=== PATIENT | male | born 1990 | race Caucasian/White ===

== ENCOUNTER 2017-04-14 09:28 | Emergency (ER) | payer OTHER ==
[2017-04-14 10:07] LABS: Basophils % (Auto) 0.4 % (0.0-1.8); Eosinophils % (Auto) 1.5 % (0.0-4.3); Hematocrit 45.1 % (35.5-45.6); Hemoglobin 15.2 gm/dl (11.8-15.2); Mean Corpuscular HGB Conc 34 % (32-34); Mean Corpuscular Hemoglobin 31 pg (28-32); Mean Corpuscular Volume 91 fl (84-94); Platelet Count 192 K/mm3 (140-440); Red Blood Count 4.96 M/mm3 (3.65-5.03); Red Cell Distribution Width 14.1 % (13.2-15.2); White Blood Count 9.1 K/mm3 (4.5-11.0)
[2017-04-14 10:31] LABS: Alanine Aminotransferase 14 units/L (7-56); Albumin 4.5 g/dL (3.9-5); Albumin/Globulin Ratio 1.8 %; Alkaline Phosphatase 54 units/L (35-129); Anion Gap 16 mmol/L; BUN/Creatinine Ratio 13.75; Blood Urea Nitrogen 11 mg/dL (9-20); Calcium 9.2 mg/dL (8.4-10.2); Carbon Dioxide 25 mmol/L (22-30); Chloride 102.8 mmol/L (98-107); Glucose 106 mg/dL (75-100); Lipase 20 units/L (13-60); Potassium 4.7 mmol/L (3.6-5.0); Sodium 139 mmol/L (137-145)
[2017-04-14 10:48] LABS: Bilirubin,Urine NEG (Negative); Blood,Urine NEG (Negative); Ketones,Urine NEG (Negative); Leukocyte Esterase,Urine NEG (Negative); Mucus,Urine 1+ /HPF; Nitrite,Urine NEG (Negative); Protein,Urine <15 mg/dL mg/dL (Negative); Urobilinogen,Urine < 2.0 mg/dL (<2.0); WBC,Urine < 1.0 /HPF (0.0-6.0)
--- NOTE | 2017-04-14 14:51 | Emergency Department Report ---
ED General Adult HPI - General Chief complaint: Abdominal Pain Stated complaint: SORE THROAT/ABD PAIN Time Seen by Provider: 04/14/17 14:20 Source: patient Mode of arrival: Ambulatory Limitations: No Limitations - History of Present Illness Initial comments: Patient complains of an intermittent mid abdominal pain. He has problems with constipation and diarrhea. He states he threw up 2 days ago. Occasionally sees a streak of blood in his stool. He is not complaining of abdominal pain now. He does not complain of a sore throat although that is mentioned on one of his intake she eats. He states the reason that he came to the emergency department is because his "dog is sick". He states he didn't think it was anything contagious but he thought he would like to be checked out. He is requesting a work excuse. He does not have a family physician. He admits occasional beer ingestion but no other gastric irritants. -: week(s) Location: abdomen Radiation: non-radiation Quality: aching Consistency: intermittent, now resolved Improves with: none Worsens with: none Associated Symptoms: denies other symptoms Treatments Prior to Arrival: none - Related Data Previous Rx's Medication Instructions Recorded Last Taken Type Hyoscyamine Subl [Levsin Sl 0.125 0.125 mg SL Q4HR PRN #7 tablet 04/14/17 Unknown Rx TAB] Lansoprazole [Prevacid] 15 mg PO BID #30 cap 04/14/17 Unknown Rx Allergies Allergy/AdvReac Type Severity Reaction Status Date / Time Penicillins Allergy Unknown Verified 04/14/17 09:34 ED Review of Systems ROS: Stated complaint: SORE THROAT/ABD PAIN Other details as noted in HPI Constitutional: denies: chills, fever Eyes: denies: eye pain, eye discharge, vision change ENT: denies: ear pain, throat pain Respiratory: denies: cough, shortness of breath, wheezing Cardiovascular: denies: chest pain, palpitations Endocrine: no symptoms reported Gastrointestinal: as per HPI, abdominal pain, nausea, vomiting. denies: diarrhea Genitourinary: denies: urgency, dysuria Musculoskeletal: denies: back pain, joint swelling, arthralgia Skin: denies: rash, lesions Neurological: denies: headache, weakness, paresthesias Psychiatric: denies: anxiety, depression Hematological/Lymphatic: denies: easy bleeding, easy bruising ED Past Medical Hx - Past Medical History Previous Medical History?: No - Surgical History Hx Appendectomy: Yes - Social History Smoking Status: Never Smoker Substance Use Type: None - Medications Home Medications: Home Medications Medication Instructions Recorded Confirmed Last Taken Type Hyoscyamine Subl [Levsin Sl 0.125 0.125 mg SL Q4HR PRN #7 tablet 04/14/17 Unknown Rx TAB] Lansoprazole [Prevacid] 15 mg PO BID #30 cap 04/14/17 Unknown Rx ED Physical Exam - General Limitations: No Limitations General appearance: alert, in no apparent distress - Head Head exam: Present: atraumatic, normocephalic - Eye Eye exam: Present: normal appearance. Absent: scleral icterus - ENT ENT exam: Present: normal exam, mucous membranes moist - Neck Neck exam: Present: normal inspection. Absent: tenderness, meningismus - Respiratory Respiratory exam: Present: normal lung sounds bilaterally. Absent: respiratory distress - Cardiovascular Cardiovascular Exam: Present: regular rate, normal rhythm. Absent: systolic murmur, diastolic murmur, rubs, gallop - GI/Abdominal GI/Abdominal exam: Present: soft, normal bowel sounds. Absent: distended, tenderness, guarding, rebound, rigid - Rectal Rectal exam: Present: deferred - Extremities Exam Extremities exam: Present: normal inspection - Back Exam Back exam: Present: normal inspection - Neurological Exam Neurological exam: Present: alert, oriented X3, CN II-XII intact. Absent: motor sensory deficit - Psychiatric Psychiatric exam: Present: normal affect, normal mood - Skin Skin exam: Present: warm, dry, intact, normal color. Absent: rash ED Course Vital Signs 04/14/17 04/14/17 09:34 13:37 Temperature 98.2 F 98.2 F Pulse Rate 79 71 Respiratory 18 16 Rate Blood Pressure 131/67 Blood Pressure 130/72 [Right] O2 Sat by Pulse 98 100 Oximetry - Reevaluation(s) Reevaluation #1: Patient's symptoms seem somewhat reminiscent of irritable bowel disease. He is appropriate for outpatient referral. 04/14/17 14:49 ED Medical Decision Making - Lab Data Result diagrams: 04/14/17 09:51 04/14/17 09:51 Laboratory Results - last 24 hr 04/14/17 04/14/17 04/14/17 09:51 09:51 10:14 WBC 9.1 RBC 4.96 Hgb 15.2 Hct 45.1 MCV 91 MCH 31 MCHC 34 RDW 14.1 Plt Count 192 Lymph % (Auto) 24.8 [place] % (Auto) 6.7 Eos % (Auto) 1.5 Baso % (Auto) 0.4 Lymph # 2.3 [place] # 0.6 Eos # 0.1 Baso # 0.0 Seg Neutrophils % 66.6 Seg Neutrophils # 6.1 Sodium 139 Potassium 4.7 Chloride 102.8 Carbon Dioxide 25 Anion Gap 16 BUN 11 Creatinine 0.8 Estimated GFR > 60 BUN/Creatinine Ratio 13.75 Glucose 106 H Calcium 9.2 Total Bilirubin 0.50 AST 14 ALT 14 Alkaline Phosphatase 54 Total Protein 7.0 Albumin 4.5 Albumin/Globulin Ratio 1.8 Lipase 20 Urine Color Yellow Urine Turbidity Clear Urine pH 5.0 Ur Specific [place] 1.019 Urine Protein <15 mg/dl Urine Glucose (UA) Neg Urine Ketones Neg Urine Blood Neg Urine Nitrite Neg Urine Bilirubin Neg Urine Urobilinogen < 2.0 Ur Leukocyte Esterase Neg Urine WBC (Auto) < 1.0 Urine RBC (Auto) 3.0 Urine Mucus 1+ Critical care attestation.: If time is entered above; I have spent that time in minutes in the direct care of this critically ill patient, excluding procedure time. ED Disposition Clinical Impression: Abdominal pain Qualifiers: Abdominal location: periumbilical Qualified Code(s): R10.33 - Periumbilical pain Disposition: DISCHARGED TO HOME OR SELFCARE Is pt being admited?: No Does the pt Need Aspirin: No Condition: Stable Instructions: Abdominal Pain (ED), Irritable Bowel Syndrome (ED) Additional Instructions: Follow-up with primary care physician and a GI doctor is recommended. Return to the emergency department any acute change or problem. Medicines as needed. Prescriptions: Hyoscyamine Subl [Levsin Sl 0.125 TAB] 0.125 mg SL Q4HR PRN #7 tablet PRN Reason: Spasms Lansoprazole [Prevacid] 15 mg PO BID #30 cap Referrals: PRIMARY CARE, [Primary Care Provider] - 3-5 Days Forms: Work/School Release Form(ED) Time of Disposition: 14:51
[2017-04-14 15:06] VITALS: BP 116/56
== END 2017-04-14 15:03 | disposition home or self-care (01) ==
LOC: ED 09:28
DX: R10.33 Periumbilical pain (principal)
CPT/HCPCS: 36415; 80053; 81001; 83690; 85025; 99283

== ENCOUNTER 2017-06-11 07:38 | Day surgery (SDC) | payer OTHER ==
[2017-06-11] MEDS ORDERED: NACL 0.9% 1000 ML 1,000 ML IV SCH (08:00)
[2017-06-11] MEDS ORDERED: DIPRIVAN 10 MG/ML IV ONE (08:12)
--- NOTE | 2017-06-11 08:15 | Anesthesia Consultation ---
Anesthesia Consult and Med Hx Date of service: 06/11/17 - Airway Anesthetic Teeth Evaluation: Good Mental/Hyoid Distance: Adequate Mallampati Class: Class I Intubation Access Assessment: Good - Pulmonary Exam CTA: Yes - Cardiac Exam Cardiac Exam: RRR - Pre-Operative Health Status ASA Pre-Surgery Classification: ASA2 Proposed Anesthetic Plan: MAC - Pulmonary Hx Smoking: Yes - Additional Comments Anesthesia Medical History Comments: fernando knee pain
--- NOTE | 2017-06-11 08:15 | Anesthesia Day of Surgery ---
Anesthesia Day of Surgery - Day of Surgery Patient Examined: Yes Patient H&P Reviewed: Yes Patient is NPO: Yes
--- NOTE | 2017-06-11 09:20 | Short Stay Summary ---
Short Stay Documentation - Allergies and Medications Current Medications: Allergies Penicillins Allergy (Verified 06/08/17 13:36) Hives Home Medications Medication Instructions Recorded Confirmed Last Taken Type No Known Home Medications [No 06/08/17 06/08/17 Unknown History Reported Home Medications] Active Medications Sodium Chloride (Nacl 0.9% 1000 Ml) 1,000 mls @ 50 mls/hr IV DIRECT [place] Last Admin: 06/11/17 08:21 Dose: 50 mls/hr - Brief post op/procedure progress note Date of procedure: 06/11/17 Pre-op diagnosis: 1. RUQ abdominal pain 2. Diarrhea 3. GI bleeding Post-op diagnosis: same Procedure: EGD with biopsy Anesthesia: MAC Findings: as above Surgeon: AUGUSTINE ARCEO Estimated blood loss: none Pathology: list (1. Antrum) Specimen disposition: to lab Condition: stable - Disposition Condition at discharge: Stable Disposition: DC-01 TO HOME OR SELFCARE Short Stay Discharge Plan Activity: no restrictions Weight Bearing Status: Full Weight Bearing Diet: regular Follow up with: MARCELLA MARS MD [Primary Care Provider] - 7 Days
--- NOTE | 2017-06-11 09:22 | Post Anesthesia Evaluation ---
- Post Anesthesia Evaluation Patient Participated: Yes Airway Patent: Yes Stable Respiratory Function: Yes Temp > 96.8F: Yes Pain Manageable: Yes Adequeate Hydration: Yes Anesthesia Complications: No Block Receding Appropriately: Not Applicable
[2017-06-11 10:00] VITALS: BP 106/53
== END 2017-06-11 07:39 | disposition home or self-care (01) ==
LOC: GIO 07:38
PROVIDERS: ATTEND Internal Medicine Gastroenterology
DX: K29.70 Gastritis, unspecified, without bleeding (principal); K21.9 Gastro-esophageal reflux disease without esophagitis; K29.80 Duodenitis without bleeding; Z87.891 Personal history of nicotine dependence; Z88.0 Allergy status to penicillin; Z86.73 Personal history of transient ischemic attack (TIA), and cerebral infarction without residual deficits; Z98.890 Other specified postprocedural states; Z83.3 Family history of diabetes mellitus
CPT/HCPCS: 43239; 88305; 88342; J2704; J7030

== ENCOUNTER 2017-06-22 10:44 | Day surgery (SDC) | payer OTHER ==
[~2017-06-22 10:44] MED LIST: DIPRIVAN 10 MG/ML IV ONE; MARCAINE-EPI/PF 0.25%-1:200,000 INFILTRATI ONE; SUBLIMAZE ONE; VANCOMYCIN/NS 1 GM/250 ML 1 GM/250 ML BAG IV NR; XYLOCAINE MPF 2% ONE; ZEMURON IV ONE
[2017-06-22] MEDS ORDERED: PEPCID PO NR (12:00)
[2017-06-22] MEDS ORDERED: VERSED IV NR (12:00)
[2017-06-22] MEDS ORDERED: NACL BACTERIOSTATIC INFILTRATI ONE (12:14)
[2017-06-22] MEDS: NACL 0.9% 1000 ML 1,000 ML IV SCH ×2 (12:20→15:25)
--- NOTE | 2017-06-22 12:46 | Anesthesia Consultation ---
Anesthesia Consult and Med Hx Date of service: 06/22/17 - Airway Anesthetic Teeth Evaluation: Poor ROM Head & Neck: Adequate Mental/Hyoid Distance: Adequate Mallampati Class: Class II Intubation Access Assessment: Probably Good - Pulmonary Exam CTA: Yes - Cardiac Exam Cardiac Exam: RRR - Pre-Operative Health Status ASA Pre-Surgery Classification: ASA2 Proposed Anesthetic Plan: General - Pulmonary Hx Smoking: Yes (STOPPED X 1 MONTH-1/2PPD X 1 YR) Hx Sleep Apnea: No (JAYCEE PRE SCREEN LOW RISK) - Cardiovascular System Hx Hypertension: No - Central Nervous System Hx Psychiatric Problems: No - Other Systems Hx Cancer: No
--- NOTE | 2017-06-22 12:47 | Anesthesia Day of Surgery ---
Anesthesia Day of Surgery - Day of Surgery Patient Examined: Yes Patient H&P Reviewed: Yes Patient is NPO: Yes
[2017-06-22] MEDS ORDERED: DECADRON ONE (12:58)
[2017-06-22] MEDS ORDERED: ZOFRAN ONE (12:58)
[2017-06-22] MEDS ORDERED: BLOXIVERZ ONE (12:58)
[2017-06-22] MEDS ORDERED: ROBINUL ONE (12:58)
[2017-06-22] MEDS ORDERED: QUELICIN ONE (13:23)
[2017-06-22] MEDS ORDERED: MARCAINE-EPI 0.25%-1:200,000 INFILTRATI ONE (13:40)
[2017-06-22] MEDS ORDERED: DIPRIVAN 10 MG/ML IV ONE (13:44)
[2017-06-22] MEDS ORDERED: DILAUDID ONE ×2 (13:51→14:50)
[2017-06-22] MEDS ORDERED: TORADOL ONE (14:11)
--- NOTE | 2017-06-22 14:30 | Operative Report ---
Operative Report Operative Report: Date of procedure: 06/22/2017 Pre-operative diagnosis: Symptomatic cholelithiasis Post-operative diagnosis: Same Procedure name(s): Laparoscopic cholecystectomy Surgeon: Hemanth Bergman MD Drum Sander Setter: Ewelina Hope M.D. Anesthesia: General EBL: Minimal Complications: None Instrument Count: correct Indications: This is a 26-year-old male with a history of right upper quadrant abdominal pain. His workup was consistent with a biliary etiology. He was offered the above-named procedures a possible treatment modality. The risks and benefits of discussed until all questions were answered. He was subsequently brought to the OR. Findings: Pericholecystic scarring and adhesions Procedure: We reviewed the informed consent. We placed the patient supine upon the table. After adequate anesthesia was reached, the patient was prepped and draped in usual sterile fashion. A 5 mm incision was made the level of umbilicus and a Veress needle was placed at this position. The abdomen was then insufflated to 15 mmHg and a 5 mm trocar was placed through the umbilical incision. We inserted the camera at this time. Under direct vision and after infiltration of local anesthetic an 11 mm port was placed in the epigastric location. This was followed by placement of two five mm ports in the right upper quadrant. We identified the gallbladder and the fundus was grasped. This was retracted superiorly. We then grasped the infundibulum and retracted it laterally. At this time we dissected free the cystic duct infundibular junction until the triangle of Calot was clearly identified. We placed 3 clips proximally on the cystic duct, 2 distally. We placed 2 clips proximally on the cystic artery. We transected the cystic duct sharply. We transected the cystic artery using electrocautery. We then dissected the gallbladder free from its fossa using electrocautery. This was placed in Endo Catch bag and removed the abdomen to be sent to pathology for further evaluation. We assured hemostasis at this time. We then evacuated the insufflation. We removed all ports and closed all port sites using a 4-0 Monocryl in a subcuticular fashion. The wounds were bandaged sterilely. The patient tolerated procedure well. They were taken to PACU in no apparent distress after extubation.
--- NOTE | 2017-06-22 14:32 | Short Stay Summary ---
Short Stay Documentation Date of service: 06/22/17 - History H&P: obtained from office - Allergies and Medications Current Medications: Allergies Penicillins Allergy (Verified 06/08/17 13:36) Hives Home Medications Medication Instructions Recorded Confirmed Last Taken Type Bono-3 Fatty Acids/Fish Oil [Fish 1 each PO DAILY 06/21/17 06/22/17 06/21/17 History Oil] Pravastatin Sodium [Pravastatin] 10 mg PO QHS 06/21/17 06/22/17 06/21/17 History Active Medications Famotidine (Pepcid) 20 mg PO PREOP NR Stop: 06/22/17 15:00 Last Admin: 06/22/17 12:19 Dose: 20 mg Vancomycin HCl (Vancomycin/Ns 1 Gm/250 Ml) 1 gm in 250 mls @ 166.667 mls/hr IV PREOP NR Stop: 06/22/17 23:59 Last Admin: 06/22/17 12:33 Dose: 166.667 mls/hr Sodium Chloride (Nacl 0.9% 1000 Ml) 1,000 mls @ 100 mls/hr IV DIRECT [place] Last Admin: 06/22/17 12:20 Dose: 100 mls/hr Midazolam HCl (Versed) 2 mg IV PREOP NR Stop: 06/22/17 23:59 Last Admin: 06/22/17 12:47 Dose: 2 mg - Brief post op/procedure progress note Date of procedure: 06/22/17 Pre-op diagnosis: symptomatic cholelithiasis Post-op diagnosis: same Procedure: Laparoscopic cholecystectomy Anesthesia: GETA, local Surgeon: TEO TAN Parent Aide: MAAME BARRIENTOS Estimated blood loss: minimal Pathology: list (gallbladder) Specimen disposition: to lab Condition: stable - Disposition Condition at discharge: Stable Disposition: DC-01 TO HOME OR SELFCARE Short Stay Discharge Plan Activity: advance as tolerated Diet: low fat Wound: keep clean and dry Follow up with: MARCELLA MARS MD [Primary Care Provider] - 7 Days TEO TAN MD [Staff Physician] - 7 Days Prescriptions: oxyCODONE /ACETAMINOPHEN [Percocet 5/325] 1 tab PO Q6HR PRN #30 tablet PRN Reason: Pain
[2017-06-22] MEDS ORDERED: ZOFRAN IV PRN (14:44)
[2017-06-22] MEDS: DILAUDID IV PRN ×4 (14:45→15:15)
[2017-06-22] MEDS ORDERED: NORCO 5/325 PO ONE (16:00)
[2017-06-22 16:13] VITALS: BP 132/84
== END 2017-06-22 16:20 | disposition home or self-care (01) ==
LOC: OR 10:44
PROVIDERS: ATTEND Surgery
DX: K81.1 Chronic cholecystitis (principal); K82.8 Other specified diseases of gallbladder; Z88.0 Allergy status to penicillin; Z79.899 Other long term (current) drug therapy; Z87.442 Personal history of urinary calculi; Z98.890 Other specified postprocedural states; Z87.891 Personal history of nicotine dependence
CPT/HCPCS: 47562; 88304; J0330; J1100; J1170; J1885; J2250; J2405; J2704; J3010; J3370; J7030; J2710

== ENCOUNTER 2017-08-23 15:52 | Emergency (ER) | payer OTHER ==
[2017-08-23 18:18] VITALS: BP 110/55
[2017-08-23 18:51] LABS: Basophils % (Auto) 0.4 % (0.0-1.8); Eosinophils % (Auto) 1.5 % (0.0-4.3); Hematocrit 45.4 % (35.5-45.6); Hemoglobin 15.1 gm/dl (11.8-15.2); Mean Corpuscular HGB Conc 33 % (32-34); Mean Corpuscular Hemoglobin 30 pg (28-32); Mean Corpuscular Volume 90 fl (84-94); Platelet Count 187 K/mm3 (140-440); Red Blood Count 5.03 M/mm3 (3.65-5.03); Red Cell Distribution Width 13.7 % (13.2-15.2)
[2017-08-23 18:56] LABS: Alanine Aminotransferase 47 units/L (7-56); Albumin 4.3 g/dL (3.9-5); Albumin/Globulin Ratio 1.3 %; Alkaline Phosphatase 83 units/L (35-129); Anion Gap 15 mmol/L; BUN/Creatinine Ratio 14.28; Blood Urea Nitrogen 10 mg/dL (9-20); Calcium 9.1 mg/dL (8.4-10.2); Carbon Dioxide 26 mmol/L (22-30); Chloride 101.5 mmol/L (98-107); Glucose 93 mg/dL (75-100); Lipase 17 units/L (13-60); Potassium 4.3 mmol/L (3.6-5.0); Sodium 138 mmol/L (137-145); Total Protein 7.5 g/dL (6.3-8.2)
[2017-08-23 19:17] LABS: Bilirubin,Urine NEG (Negative); Blood,Urine NEG (Negative); Ketones,Urine NEG (Negative); Leukocyte Esterase,Urine NEG (Negative); Mucus,Urine 3+ /HPF; Nitrite,Urine NEG (Negative); Protein,Urine <15 mg/dL mg/dL (Negative); RBC,Urine < 1.0 /HPF (0.0-6.0); Urobilinogen,Urine < 2.0 mg/dL (<2.0); WBC,Urine < 1.0 /HPF (0.0-6.0)
== END 2017-08-23 19:25 | disposition left against medical advice (07) ==
LOC: ED 15:52
DX: R10.9 Unspecified abdominal pain (principal); Z53.21 Procedure and treatment not carried out due to patient leaving prior to being seen by health care provider
CPT/HCPCS: 36415; 80053; 81001; 83690; 85025

== ENCOUNTER 2020-12-31 23:57 | Emergency (ER) | payer OTHER ==
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
[2021-01-01] MEDS ORDERED: HYDROmorphone 1 MG/1 ML INJ IV ONE (00:54)
[2021-01-01] MEDS ORDERED: ONDANSETRON 4 MG/2 ML INJ IV ONE (00:54)
[2021-01-01 00:56] LABS: Hematocrit 41.1 % (35.5-45.6); Hemoglobin 14.3 gm/dl (11.8-15.2); Mean Corpuscular HGB Conc 35 % (32-34); Mean Corpuscular Volume 93 fl (84-94); Platelet Count 167 K/mm3 (140-440); Red Blood Count 4.43 M/mm3 (3.65-5.03); Red Cell Distribution Width 13.5 % (13.2-15.2)
[2021-01-01 01:19] LABS: Alanine Aminotransferase 44 units/L (7-56); Albumin 4.6 g/dL (3.9-5); BUN/Creatinine Ratio 13; Blood Urea Nitrogen 10 mg/dL (9-20); Hemolysis Index 3
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
[2021-01-01 03:15] VITALS: BP 128/74
== END 2021-01-01 03:24 ==
LOC: ED 23:57
DX: S22.42XA Multiple fractures of ribs, left side, initial encounter for closed fracture (principal); S09.90XA Unspecified injury of head, initial encounter; S09.93XA Unspecified injury of face, initial encounter; S00.83XA Contusion of other part of head, initial encounter; S30.1XXA Contusion of abdominal wall, initial encounter; R10.12 Left upper quadrant pain; K21.9 Gastro-esophageal reflux disease without esophagitis; Z79.899 Other long term (current) drug therapy; Z88.0 Allergy status to penicillin; Z90.49 Acquired absence of other specified parts of digestive tract; Z87.891 Personal history of nicotine dependence; Z87.442 Personal history of urinary calculi; Y04.8XXA Assault by other bodily force, initial encounter; Y93.89 Activity, other specified; Y92.89 Other specified places as the place of occurrence of the external cause; Y99.8 Other external cause status
CPT/HCPCS: 36415; 70450; 70486; 71111; 74177; 80053; 85027; 96374; 96375; 99285; J1170; J2405; Q9967